=== PATIENT | female | born 1990 | race Caucasian/White ===

== ENCOUNTER 2022-05-13 11:21 | Outpatient (CLI) | payer MEDICAID, SELFPAY ==
[2022-05-13 14:12] LABS: Cholesterol* 136 mg/dL (90-199); Glucose* 92 mg/dL (60-115); HDL Cholesterol* 41 mg/dL (>=50); LDL Cholesterol Calculated 77 mg/dL (<100); Triglycerides* 89 mg/dL (40-149)
== END 2022-05-13 11:22 | disposition home or self-care (01) ==
PROVIDERS: Visit Provider Registered Nurse
DX: Z01.419 Encounter for gynecological examination (general) (routine) without abnormal findings (principal); E66.01 Morbid (severe) obesity due to excess calories; Z13.1 Encounter for screening for diabetes mellitus; Z13.6 Encounter for screening for cardiovascular disorders
CPT/HCPCS: 80061; 82947

== ENCOUNTER 2024-02-23 13:45 | Outpatient (CLI) | payer MEDICAID, SELFPAY ==
--- NOTE | 2024-02-23 15:00 | CRLHL7_ITS ---
For Patients: As a result of the Century Cures Act, medical imaging exams and procedure reports are released immediately into your electronic medical record. You may view this report before your referring provider. If you have questions, please contact your health care provider. INDICATION: Lost Nexplanon. TECHNIQUE: Focused ultrasound of the left arm. Grayscale image obtained. FINDINGS: Nexplanon device is located in the superficial subcutaneous tissues of the medial distal left upper arm. Dictated by Miko Mcintyre MD @ 02/27/2024 9:31:05 AM (Electronically Signed)
== END 2024-02-23 13:46 | disposition home or self-care (01) ==
LOC: US 13:46
PROVIDERS: Visit Provider Midwife
DX: Z30.9 Encounter for contraceptive management, unspecified (principal)
CPT/HCPCS: 76882

== ENCOUNTER 2024-03-19 18:12 | Outpatient (CLI) | payer MEDICAID, SELFPAY | END 2024-03-19 18:13 | disposition home or self-care (01) | LOC: NFLDUCREF 18:13 | DX: R06.02 Shortness of breath (principal); R50.9 Fever, unspecified | CPT/HCPCS: 85379 ==

== ENCOUNTER 2024-03-19 20:47 | Emergency (ER) | payer MEDICAID, SELFPAY ==
[2024-03-19 20:55] VITALS: BP 126/67; PULSE 98; RESP 20; TEMP 37.3; O2SAT 99; BMI 40.4
[2024-03-19 21:05] VITALS: O2SAT 98
--- NOTE | 2024-03-19 21:05 | CRLHL7_ITS ---
For Patients: As a result of the Century Cures Act, medical imaging exams and procedure reports are released immediately into your electronic medical record. You may view this report before your referring provider. If you have questions, please contact your health care provider. INDICATION: Pulmonary embolism (PE) suspected, positive D-dimer. Shortness of breath. TECHNIQUE: CT chest PE was acquired with 95 cc Omnipaque 350 IV contrast. COMPARISON: None. FINDINGS: Heart and vasculature: Contrast opacification of the pulmonary arterial tree is adequate. No pulmonary embolism identified. No cardiomegaly or pericardial effusion. No CT evidence of right heart strain. No thoracic aortic aneurysm. Main pulmonary artery normal in caliber. Lungs and pleura: Dense right lower lobe consolidation with additional nodular and ground-glass consolidations also noted within the right lower lobe. Benign-appearing 4 mm subpleural nodule within the left lower lobe also present. No pleural effusion or pneumothorax. Lymph nodes/mediastinum: No suspicious lymphadenopathy. Chest wall: Nonspecific right breast superficial soft tissue nodule measuring 1.1 cm (axial image 65). Upper abdomen: No acute or suspicious abnormality. Bones: No acute or suspicious abnormality. IMPRESSION: 1. No pulmonary embolism identified. 2. Right lower lobe pneumonia. 3. Nonspecific right breast superficial soft tissue nodule measuring 1.1 cm. Recommend correlation with ultrasound and/or mammography. Please note that all CT scans at this facility use dose modulation, iterative reconstruction, and/or weight-based dosing when appropriate to reduce radiation dose to as low as reasonably achievable. Dictated by Judson Herzog MD @ 03/19/2024 9:52:34 PM (Electronically Signed)
--- NOTE | 2024-03-19 21:09 | ED_ITS ---
HPI - General Adult General Chief complaint: Chest Pain Stated complaint: chest pain, short of breath Time Seen by Provider: 03/19/24 21:01 Source: patient Mode of arrival: ambulatory Limitations: no limitations History of Present Illness HPI narrative: 33-year-old female coming in today complaining of shortness of breath and lung pain for 3 days. She states that she has a very mild cough. But that her lungs feel like they are on fire all the time. She states that she significantly short of breath. She states that she feels like she can hardly walk from 1 room to another without needing to catch her breath. She has been having fevers on and off over the last 3 days, high as 101. She states that she feels some full body achiness and a mild headache. She denies vomiting. She states that she has had a decreased appetite but has been trying to drink plenty of fluids. She denies sore throat or abdominal pain. She stay is that she has been taking [id number]-[id number] medicines like DayQuil and NyQuil for her symptoms. Earlier today patient went to the urgent care where she had a D-dimer checked and it was slightly elevated at 0.85. She was encouraged to come to the ER for follow- up. She also had influenza and COVID testing done earlier today which were both negative. Patient denies any personal or family history of blood clots in the past. She denies any recent travel or surgery. She is on control, Nexplanon. Related Data Home Medications ?Medication ?Instructions ?Recorded ?Confirmed etonogestrel 68 mg subdermal 1 implant subdermal ONCE 02/23/24 03/19/24 implant (Nexplanon) phentermine 37.5 mg tablet 37.5 mg PO DAILY 03/19/24 03/19/24 Previous Rx's ?Medication ?Instructions ?Recorded amoxicillin 500 mg tablet 1,000 mg (2 x 500 mg) PO TID 7 03/19/24 days #42 tabs azithromycin 250 mg tablet 500 mg PO DIRECTED #6 tabs 03/19/24 Allergies Allergy/AdvReac Type Severity Reaction Status Date / Time No Known Drug Allergies Allergy Verified 03/19/24 21:30 Review of Systems Status of ROS: Reports: 10 or more systems reviewed and unremarkable except as noted in History and below [facility] Medical History Morbid obesity ?E66.01 - Morbid (severe) obesity due to excess calories (ICD-10) History of depression ?Z87.59 - Personal history of other complications of , childbirth and the puer[place]ium (ICD-10) ?Z86.59 - Personal history of other mental and behavioral disorders (ICD-10) Surgical History H/O wisdom tooth extraction ?K08.409 - Partial loss of teeth, unspecified cause, unspecified class (ICD-10) Family History Maternal Grandmother Stroke Heart disease High blood pressure Paternal Grandmother Ovarian cancer Mother High blood pressure Diabetes Paternal Grandfather High cholesterol High blood pressure Melanoma Maternal Grandfather Diabetes Father High blood pressure Social History Smoking Status: Former smoker Second hand tobacco smoke exposure: No How often do you have a drink containing alcohol: never AUDIT-C Alcohol total score: 0 Non-prescribed substance use: denies use Exam Narrative: Exam Narrative: Overweight, well-developed patient in mild respiratory distress. Alert and oriented. Answers questions appropriately. Mood and affect are appropriate. Thoughts are goal oriented and rational. No tangential or magical thinking noted. HEENT: Normocephalic atraumatic. Pupils are equally round reactive to light. Extraocular muscles are intact. Conjunctivae are moist without any icterus noted. Moist mucous membranes. Posterior pharynx is normal. Neck is soft with out any lymphadenopathy or thyromegaly. No masses are appreciated. Cardiovascular: Tachycardic, S1-S2 present without murmurs. Lungs: Clear to auscultation bilaterally no wheezes rhonchi or rales are appreciated. Patient takes deep breaths without any discomfort. Abdomen: Soft and nontender nondistended with normal bowel sounds. Extremities: Bilateral lower extremities are without edema. Skin: Well perfused without any obvious rashes. Slightly clammy. Const: Vital Signs, click to edit/add: Vital Signs - 24 hr 03/19/24 20:55 03/19/24 21:05 Temperature 99.1 F Pulse Rate [Right Pulse Oximeter] 98 Respiratory Rate 20 Blood Pressure [Ri ght Upper Arm] 126/67 Pulse Oximetry 99 98 Oxygen Delivery Me thod Room Air Course Course ED Course: EKG, read by me, shows sinus tachycardia with a pulse of 105. Labs were drawn and CT PE protocol was ordered. CBC unremarkable. Point of care troponin was within normal limits. Sodium is a little low. CRP is elevated. Chest CT is negative for PE however, does show a right lower lobe pneumonia. Patient also has a nonspecific breast nodule. Patient remained hemodynamically stable while here with an oxygen saturation above 98%. Because of the time in the night and patient's discomfort, we did give her a dose of IV Rocephin while she was here and she will start her antibiotics in the morning. Vital Signs Vital signs: Initial Vital Signs Temperature 99.1 F 03/19/24 20:55 Temperature Source Temporal Artery Scan 03/19/24 20:55 Pulse Rate 98 03/19/24 20:55 Pulse Rhythm Regular 03/19/24 20:55 Pulse Strength 3+ Normal 03/19/24 20:55 Respiratory Rate 20 03/19/24 20:55 Blood Pressure 126/67 03/19/24 20:55 Blood Pressure Mean 86 03/19/24 20:55 Blood Pressure Position Sitting 03/19/24 20:55 Pulse Oximetry 99 03/19/24 20:55 Oxygen Delivery Method Room Air 03/19/24 20:55 Vital Signs Temperature 99.1 F 03/19/24 20:55 Pulse Rate 98 03/19/24 20:55 Respiratory Rate 20 03/19/24 20:55 Blood Pressure 126/67 03/19/24 20:55 Pulse Oximetry 99 03/19/24 20:55 Oxygen Delivery Method Room Air 03/19/24 20:55 Temperature 99.1 F 03/19/24 20:55 Pulse Rate 98 03/19/24 20:55 Respiratory Rate 20 03/19/24 20:55 Blood Pressure 126/67 03/19/24 20:55 Pulse Oximetry 98 03/19/24 21:05 Oxygen Delivery Method Room Air 03/19/24 20:55 Medications Administered Medications: Generic Name Dose Route Start Last Admin Trade Name Freq PRN Reason Stop Dose Admin Ceftriaxone Sodium 1 gm/ 100 mls @ 200 mls/hr 03/19/24 21:58 03/19/24 22:02 Sodium Chloride IVPB 03/19/24 21:59 200 mls/hr ONCE ONE Administration Medical Decision Making MDM Narrative Medical decision making narrative: 33-year-old female with lobe odor. Will treat with amoxicillin azithromycin. Lab Data Lab results reviewed: Yes I reviewed the patient's lab results Labs: Lab Results 03/19/24 03/19/24 03/19/24 Range/Units 21:05 21:06 21:08 WBC 7.48 (4.50-11.00) K/uL RBC 4.91 (4.00-5.20) m/uL Hgb 14.2 (12.0-16.0) gm/dL Hct 41.9 (33.0-51.0) % MCV 85 (80-100) fL MCH 29 (26-34) pg MCHC 34 (32-36) gm/dL RDW Coeff of Silverio 12.6 (11.5-15.5) % Plt Count 159 (140-440) K/uL Neut % (Auto) 82.5 H (42.0-72.0) % Lymph % (Auto) 8.7 L (20-44) % [place] % (Auto) 8.6 (0.0-11.0) % Eos % (Auto) 0.1 (0.0-7.0) % Baso % (Auto) 0.1 (0.0-3.0) % Neut # (Auto) 6.20 (1.7-7.0) K/uL Lymph # (Auto) 0.70 L (0.90-2.90) K/uL [place] # (Auto) 0.60 (0.00-0.90) K/UL Eos # (Auto) 0.01 (0.00-0.50) K/uL Baso # (Auto) 0.01 (0.00-0.30) K/uL Abs Immat Gran (auto) 0.00 (0.00-0.30) K/uL Imm/Tot Granulo (auto) 0.0 % Sodium 132 L (135-149) mmol/L Potassium 3.9 (3.6-5.1) mmol/L Chloride 97 (96-114) mmol/L Carbon Dioxide 23 (20-32) mmol/L Anion Gap 12 (7-15) mEq/L BUN 9 (5-24) mg/dL Creatinine 0.7 (0.5-1.5) mg/dL Estimated Creat Clear 112.20 Estimated GFR 118 ml/min Glucose 153 H (60-115) mg/dL Calcium 9.2 (8.4-10.6) mg/dL Total Bilirubin 0.9 Cancelled (0.1-1.5) mg/dL Direct Bilirubin 0.2 Cancelled (0.0-0.5) mg/dL AST 22 Cancelled (12-35) U/L ALT 20 Cancelled (4-35) U/L Alkaline Phosphatase 48 Cancelled (40-150) U/L C-Reactive Protein 4.9 H (0.5-1.0) mg/dL Total Protein 7.9 Cancelled (6.0-8.3) g/dL Albumin 4.6 Cancelled (3.3-5.0) g/dL POC Troponin I 0.02 (0.01-0.04) ng/ml Imaging Data CT scan - chest: Attestation: I have reviewed the pertinent imaging results. Radiologist's impression: TECHNIQUE: CT chest PE was acquired with 95 cc Omnipaque 350 IV contrast. COMPARISON: None. FINDINGS: Heart and vasculature: Contrast opacification of the pulmonary arterial tree is adequate. No pulmonary embolism identified. No cardiomegaly or pericardial effusion. No CT evidence of right heart strain. No thoracic aortic aneurysm. Main pulmonary artery normal in caliber. Lungs and pleura: Dense right lower lobe consolidation with additional nodular and ground-glass consolidations also noted within the right lower lobe. Benign- appearing 4 mm subpleural nodule within the left lower lobe also present. No pleural effusion or pneumothorax. Lymph nodes/mediastinum: No suspicious lymphadenopathy. Chest wall: Nonspecific right breast superficial soft tissue nodule measuring 1.1 cm (axial image 65). Upper abdomen: No acute or suspicious abnormality. Bones: No acute or suspicious abnormality. IMPRESSION: 1. No pulmonary embolism identified. 2. Right lower lobe pneumonia. 3. Nonspecific right breast superficial soft tissue nodule measuring 1.1 cm. Recommend correlation with ultrasound and/or mammography. ECG Data Attestation: I personally reviewed and interpreted this ECG as follows: Discharge Plan Discharge Clinical Impression: Pneumonia, Breast nodule Instructions: Pneumonia (ED) Additional Instructions: Take all antibiotics as prescribed. Okay to start tomorrow as you received IV antibiotics in the ED tonight. Return to the ER if you are having more trouble breathing. Otherwise, follow-up with your primary care provider in the next 2-[address] scan also showed a right sided breast nodule. You should follow-up with your primary care provider to discuss this and potentially have a follow-up ultrasound. Prescriptions: New azithromycin 250 mg tablet 500 mg PO DIRECTED Qty: 6 0RF Taper: Z-PATEL 500 mg Q24H for 1 Day and 0 Hour 250 mg Q24H for 4 Days and 0 Hour Rx Instructions: For 250 mg dose pack: take 500 mg today (day 1), then 250 mg for 4 days (days 2-5) amoxicillin 500 mg tablet 1,000 mg PO TID 7 Days Qty: 42 0RF No Action Nexplanon 68 mg implant 1 implant subdermal ONCE Rx Instructions: as a single dose L Arm phentermine 37.5 mg tablet 37.5 mg PO DAILY Follow Up/Referrals: Provider,Not a Local [Primary Care Provider] - Stand Alone Forms: [facility] Info Instructions
[2024-03-19 21:15] LABS: Basophils Absolute Auto 0.01 K/uL (0.00-0.30); Basophils Percent Auto 0.1 % (0.0-3.0); Eosinophils Absolute Auto 0.01 K/uL (0.00-0.50); Eosinophils Percent Auto 0.1 % (0.0-7.0); Hematocrit 41.9 % (33.0-51.0); Hemoglobin* 14.2 gm/dL (12.0-16.0); Lymphocytes Percent Auto 8.7 % (20-44); Mean Corpuscular HGB Conc 34 gm/dL (32-36); Mean Corpuscular Hemoglobin 29 pg (26-34); Mean Corpuscular Volume 85 fL (80-100); Monocytes Percent Auto 8.6 % (0.0-11.0); Neutrophils Percent Auto 82.5 % (42.0-72.0); Platelet Count* 159 K/uL (140-440); RDW Coefficient of Variation % 12.6 % (11.5-15.5); Red Blood Count 4.91 m/uL (4.00-5.20); White Blood Count* 7.48 K/uL (4.50-11.00)
[2024-03-19 21:17] LABS: Slide Review Reflex No
[2024-03-19 21:22] LABS: Troponin, Point-of-Care* 0.02 ng/ml (0.01-0.04)
[2024-03-19 21:38] LABS: Albumin* 4.6 g/dL (3.3-5.0); Chloride* 97 mmol/L (96-114)
[2024-03-19 21:39] LABS: Potassium* 3.9 mmol/L (3.6-5.1); Sodium* 132 mmol/L (135-149)
[2024-03-19 21:41] LABS: Creatinine* 0.7 mg/dL (0.5-1.5); Estimated Glomerular Filt Rate 118 ml/min
[2024-03-19 21:42] LABS: Alanine Aminotransferase* 20 U/L (4-35); Alkaline Phosphatase* 48 U/L (40-150); Anion Gap 12 mEq/L (7-15); Aspartate Amino Transferase* 22 U/L (12-35); Bilirubin Direct* 0.2 mg/dL (0.0-0.5); Bilirubin Total* 0.9 mg/dL (0.1-1.5); Blood Urea Nitrogen* 9 mg/dL (5-24); Carbon Dioxide* 23 mmol/L (20-32); Glucose* 153 mg/dL (60-115); Total Protein* 7.9 g/dL (6.0-8.3)
[2024-03-19 21:43] LABS: Calcium* 9.2 mg/dL (8.4-10.6)
[2024-03-19 21:45] LABS: C Reactive Protein* 4.9 mg/dL (0.5-1.0)
[2024-03-19] MEDS: cefTRIAXone 1 GM in 0.9 % SODIUM CHLORIDE Mini-bag 100 ML IVPB (22:02)
[2024-03-19 22:28] VITALS: BP 120/68; PULSE 91; RESP 20; TEMP 37.3; O2SAT 98
== END 2024-03-19 22:28 | disposition home or self-care (01) ==
PROVIDERS: Emergency Provider Family Medicine
DX: J18.9 Pneumonia, unspecified organism (principal); N63.0 Unspecified lump in unspecified breast
CPT/HCPCS: 36415; 71275; 80048; 80076; 84484; 85025; 86140; 93005; 94761; 96365; 99284; 99285; J0696; Q9967

== ENCOUNTER 2024-03-29 09:32 | Outpatient (CLI) | payer MEDICAID, SELFPAY ==
--- NOTE | 2024-03-29 09:45 | CRLHL7_ITS ---
For Patients: As a result of the Cures Act, medical imaging exams and procedure reports are released immediately into your electronic medical record. You may view this report before your referring provider. If you have questions, please contact your health care provider. RIGHT BREAST DIAGNOSTIC MAMMOGRAM WITH COMPUTER-AIDED DETECTION AND TOMOSYNTHESIS, 03/29/2024 RIGHT BREAST ULTRASOUND, 03/29/2024 CLINICAL HISTORY: RIGHT breast mass/asymmetry in a 33-year-old female. COMPARISON: CT chest 03/19/2024. TECHNIQUE: Digital RIGHT mammogram in 2 projections with computer-aided detection. Tomosynthesis was used in this interpretation. Real-time ultrasound imaging of RIGHT breast with imaging documentation. BREAST COMPOSITION: There are scattered areas of fibroglandular density. FINDINGS: 3D CC/MLO RIGHT breast mammogram images submitted. Nodular density is present within the medial breast without architectural distortion. No suspicious calcifications. No adenopathy. Targeted RIGHT breast ultrasound performed at 2 o`clock 2 cm from the nipple. In this location there is a solid circumscribed hypoechoic nodule measuring 4 x 10 x 10 millimeters. IMPRESSION: Benign fibroadenoma RIGHT breast 2 o`clock 2 cm from the nipple measuring 1 cm. No suspicious findings. RECOMMENDATIONS: Age-appropriate BILATERAL screening mammography. A lay language report of this examination will be provided to the patient. BI-RADS Category 2. Benign Dictated by Jose Grey MD @ 03/29/2024 10:56:46 AM LAWRENCE/joseph DW/Dictated by: Jose Grey MD @ 03/29/2024 10:56:00 AM (Electronically Signed)
--- NOTE | 2024-03-29 10:15 | CRLHL7_ITS ---
For Patients: As a result of the Century Cures Act, medical imaging exams and procedure reports are released immediately into your electronic medical record. You may view this report before your referring provider. If you have questions, please contact your health care provider. Please see diagnostic RIGHT breast mammogram for RIGHT breast ultrasound results. DW/Dictated by: Jose Grey MD @ 03/29/2024 10:56:00 AM (Electronically Signed)
== END 2024-03-29 09:33 | disposition home or self-care (01) ==
LOC: MAMMO 09:33
PROVIDERS: Visit Provider Physician Assistant
DX: N63.10 Unspecified lump in the right breast, unspecified quadrant (principal); D24.1 Benign neoplasm of right breast
CPT/HCPCS: 76642; 77065; G0279